=== PATIENT | female | born 2000 | race Two or more races ===

== ENCOUNTER 2021-10-11 20:18 | Emergency (ER) | payer MEDICAID ==
[~2021-10-11] VITALS: Ht 154.9 cm; Wt 47.7 kg
[2021-10-11 20:24] VITALS: BP 101/58
[2021-10-11] MEDS ORDERED: TRAM50TA4 PO (20:53)
[2021-10-11] MEDS ORDERED: PENI500T2 PO (20:53)
== END 2021-10-11 20:57 | disposition home or self-care (01) ==
LOC: EMS 20:22
DX: K08.89 Other specified disorders of teeth and supporting structures (principal)
CPT/HCPCS: 99283; Z7502